=== PATIENT | female | born 1990 | race African-American/Black ===

== ENCOUNTER 2017-04-01 18:11 | Emergency (ER) | payer BC, MEDICAID ==
[~2017-04-01] VITALS: Ht 162.6 cm; Wt 53.0 kg
[~2017-04-01 18:11] MED LIST: ALPR0.5T PO; BACTDS PO; CEPH-443 PO; HYDR-3498 PO; IBUP-1542 PO; IBUP400T22 PO; NAPR-260 PO
[2017-04-01 18:36] VITALS: Ht 162.6 cm; Wt 53.0 kg
[2017-04-01] MEDS ORDERED: HYDR-906 PO (21:06)
[2017-04-01] MEDS ORDERED: CYCL-319 PO (21:07)
--- NOTE | 2017-04-01 21:29 | ERD ---
ER Documentation Chief Complaint Date/Time DATE: 04/01/17 TIME: 21:23 Chief Complaint cough w/ sob x 1 week HPI 27-year-old [id number] female coming in complaining of left-sided neck pain. Patient states she has had this pain for last 2-3 years. Patient states she has diffuse body pain and feels that she has spasms. The only thing that ever helped her with her pain is Xanax and Mcrae Helena. Patient denies any chest pain or shortness of breath. Denies any new acute injuries. Denies any numbness or tingling down her arms. Denies any headaches, fevers, dizziness, vomiting, changes in urination or bowel movement. ROS All systems reviewed and are negative except as per history of present illness. Medications Home Meds Active Scripts Cyclobenzaprine Hcl* (Cyclobenzaprine Hcl*) 10 Mg Tablet, 10 MG PO TID, #15 TAB Prov:JUAN RAMON LAIRD PA-C 04/01/17 Hydrocodone/Acetaminophen (Mcrae Helena 5-325 Tablet) 1 Each Tablet, 1 TAB PO Q6H Y for PAIN, #7 TAB Prov:JUAN RAMON LAIRD PA-C 04/01/17 Ibuprofen* (Motrin*) 400 Mg Tab, 400 MG PO Q6, #30 TAB Prov:TARAS CEBALLOS NP 03/21/16 Sulfamethoxazole-Trimethoprim* (Bactrim* DS) 800-160 Mg Tab, 1 TAB PO BID for 5 Days, TAB Prov:TARAS CEBALLOS NP 03/21/16 Cephalexin* (Keflex*) 500 Mg Capsule, 500 MG PO QID for 5 Days, CAP Prov:TARAS CEBALLOS NP 03/21/16 Ibuprofen* (Motrin*) 600 Mg Tab, 600 MG PO Q6H Y for PAIN AND OR ELEVATED TEMP, #30 Prov:CASEY GUPTA MD 04/03/15 Naproxen* (Naprosyn*) 500 Mg Tablet, 500 MG PO BID Y for PAIN AND/OR INFLAMMATION, #30 TAB Prov:JUAN RAMON LAIRD PA-C 03/28/15 Alprazolam* (Xanax*) 0.5 Mg Tab, 0.5 MG PO Q8H Y for ANXIETY, #7 TAB Prov:JUAN RAMON LAIRD PA-C 03/28/15 Hydrocodone Bit-Acetaminophen* (Mcrae Helena*) 5-325 Mg Tab, 1 TAB PO Q6 Y for PAIN, # 7 TAB Prov:JUAN RAMON LAIRD PA-C 03/28/15 Allergies Allergies: Coded Allergies: No Known Allergy (Unverified , 03/28/15) PMhx/Soc History of Surgery: Yes () Anesthesia Reaction: No Hx Neurological Disorder: No Hx Respiratory Disorders: No Hx Cardiac Disorders: No Hx Psychiatric Problems: No Hx Miscellaneous Medical Probl: No Hx Alcohol Use: No Hx Substance Use: No Hx Tobacco Use: Yes (2-3 cigs per day) Smoking Status: Current every day smoker Physical Exam Vitals Vital Signs Date Time Temp Pulse Resp B/P Pulse Ox O2 Delivery O2 Flow Rate FiO2 04/01/17 18:36 98.9 116 20 135/76 97 Physical Exam GENERAL: The patient is well-appearing, well-nourished, in no acute distress NECK: C-spine is soft and supple. There is no meningismus. There is no cervical lymphadenopathy. No JVD. No bruits. No goiter. TTP over paraspinous muscles. CHEST: Clear to auscultation bilaterally. There are no rales, wheezes or rhonchi. HEART: Regular rate and rhythm. No murmurs, clicks, rubs or gallops. No S3 or S4. BACK: No midline or flank tenderness. EXTREMITIES: Equal pulses bilaterally. There is no peripheral clubbing, cyanosis or edema. No focal swelling or erythema. Full range of motion. Grossly neurovascularly intact. NEUROLOGIC: Alert and oriented. Cranial nerves II through XII intact. Motor strength in all 4 extremities with 5 out of 5 strength. Sensation grossly intact. Normal speech and gait. Babinski negative. DTR 2+ throughout. SKIN: There is no apparent rash or petechiae. The skin is warm and dry. Results 24 hrs Current Medications Medications (Trade) Dose Ordered Sig/Selina Route PRN Reason Start Time Stop Time Status Last Admin Dose Admin Acetaminophen/ Hydrocodone Bitart (Mcrae Helena (5/325)) 1 tab ONCE ONCE PO 04/01/17 21:30 04/01/17 21:31 04/01/17 21:21 Procedures/MDM ER Course: Mcrae Helena given in ED MDM: 27 yr old Complaining of diffuse body pain. I have low suspicion for acute fracture dislocation. I have low suspicion for neurodeficit. I have low suspicion for acute bacterial infection within the spine. I have low suspicion for cardiac or pulmonary emergency. Patient's exam is not concerning and patient is nontoxic-appearing. Patient is recommended to follow-up with primary care within 1 to days for reevaluation. I will recommend patient to follow-up with pain management as this has been a chronic problem for the last 2 -3 years. Patient is discharged with strict hip precautions. Patient understood and complied. Departure Diagnosis: Primary Impression: Back pain Condition: Stable Patient Instructions: Back Pain (Acute Or Chronic) [facility] YOU HAVE RECEIVED A MEDICAL SCREENING EXAM AND THE RESULTS INDICATE THAT YOU DO NOT HAVE A CONDITION THAT REQUIRES URGENT TREATMENT IN THE EMERGENCY DEPARTMENT. FURTHER EVALUATION AND TREATMENT OF YOUR CONDITION CAN WAIT UNTIL YOU ARE SEEN IN YOUR DOCTORS OFFICE WITHIN THE NEXT 1-2 DAYS. IT IS YOUR RESPONSIBILITY TO MAKE AN APPOINTMENT FOR FOLOW-UP CARE. IF YOU HAVE A PRIMARY DOCTOR --you should call your primary doctor and schedule an appointment IF YOU DO NOT HAVE A PRIMARY DOCTOR YOU CAN CALL OUR PHYSICIAN REFERRAL HOTLINE AT IF YOU CAN NOT AFFORD TO SEE A PHYSICIAN YOU CAN CHOSE FROM THE FOLLOWING [facility] [id number] [facility]. [facility] [address] [facility] [facility] [place] [address] [facility]. [facility] [address] [facility]. [facility] [address] [facility]. [facility]. [address] Additional Instructions: FOLLOW UP WITH YOUR PRIMARY CARE PHYSICIAN TOMORROW.Return to this facility if you are not improving as expected. JUAN RAMON LAIRD PA-C Apr 01, 2017 21:29
[2017-04-01] MEDS ORDERED: HYDROCODONE/APAP (5/325) TAB PO ONE (21:30)
[2017-04-01 21:47] VITALS: BP 124/69; PULSE 98; RESP 16; TEMP 98.3
== END 2017-04-01 21:49 | disposition home or self-care (01) ==
LOC: FTE 18:11
DX: M54.9 Dorsalgia, unspecified (principal); F17.210 Nicotine dependence, cigarettes, uncomplicated
CPT/HCPCS: 99284; Z7610

== ENCOUNTER 2017-09-01 07:46 | Emergency (ER) | END 2017-09-01 10:28 | disposition home or self-care (01) ==